=== PATIENT | female | born 2000 | race African-American/Black ===

== ENCOUNTER 2022-01-25 11:11 | Emergency (ER) | payer MEDICAID ==
[~2022-01-25] VITALS: Ht 162.6 cm; Wt 69.0 kg
[2022-01-25 11:12] VITALS: BP 142/86
[2022-01-25] MEDS ORDERED: NITROGLYCERIN 0.4MG TABLET SL SL PRN (12:15)
[2022-01-25] MEDS ORDERED: ASPIRIN 81MG TABLET PO ONE (12:15)
[2022-01-25 12:45] LABS: BASOPHILS % 0.5 % (0.0-2.0); EOSINOPHILS % 0.8 % (0.0-5.0); HEMATOCRIT. 42.1 % (36.0-48.0); HEMOGLOBIN. 13.8 g/dL (12.0-16.0); LYMPHOCYTES % 26.8 % (20.0-50.0); MEAN CORPUSCULAR HEMOGLOBIN 29.9 pg (28.0-32.0); MEAN CORPUSCULAR VOLUME 91.3 fL (81.0-99.0); MEAN PLATELET VOLUME 8.2 fl (7.4-10.4); MONOCYTES % 11.3 % (2.0-8.0); NEUTROPHILS % 60.6 % (40.0-76.0); PLATELET 295 x1000/uL (130-400); RED BLOOD CELL COUNT 4.62 mill/uL (4.2-5.4)
[2022-01-25 12:53] LABS: CHLORIDE 107 mEq/L (98-107)
[2022-01-25 13:07] LABS: HCG SCREEN NEGATIVE
== END 2022-01-25 17:00 | disposition home or self-care (01) ==
LOC: ER 16:56
DX: R07.89 Other chest pain (principal); F12.10 Cannabis abuse, uncomplicated; Z86.39 Personal history of other endocrine, nutritional and metabolic disease
CPT/HCPCS: 36415; 71045; 80053; 83880; 84484; 84703; 85025; 85379; 93005; 99285

== ENCOUNTER 2025-04-27 15:30 | Emergency (ER) | payer MEDICAID ==
[~2025-04-27] VITALS: Ht 162.6 cm; Wt 72.5 kg
[2025-04-27 15:33] VITALS: O2SAT 97
[2025-04-27 16:24] LABS: BASOPHILS % 0.3 % (0.0-2.0); EOSINOPHILS % 1.2 % (0.0-5.0); HEMATOCRIT. 44.7 % (36.0-48.0); HEMOGLOBIN. 14.8 g/dL (12.0-16.0); LYMPHOCYTES % 22.6 % (20.0-50.0); MEAN PLATELET VOLUME 8.0 fl (7.4-10.4); MONOCYTES % 7.8 % (2.0-8.0); NEUTROPHILS % 68.1 % (40.0-76.0); PLATELET 420 x1000/uL (130-400); RED BLOOD CELL COUNT 5.04 mill/uL (4.2-5.4); RED CELL DISTRIBUTION WIDTH 14.5 % (11.6-14.6)
[2025-04-27 16:31] LABS: CREATININE 0.9 mg/dL (0.6-1.0)
[2025-04-27 16:32] LABS: UREA NITROGEN BLOOD 6 mg/dL (9-23)
[2025-04-27] MEDS: ONDANSETRON HCL 4MG/2ML INJ IM ONE (17:00)
[2025-04-27] MEDS ORDERED: ONDANSETRON 4MG ODT PO ONE (17:00)
[2025-04-27 17:34] LABS: ASPARTATE AMINOTRANSFERASE 31 IU/L (<34)
[2025-04-27 17:35] LABS: BILIRUBIN DIRECT 0.3 mg/dL (<=3.0); BILIRUBIN TOTAL 0.7 mg/dL (0.1-1.0); PROTEIN TOTAL 7.7 g/dL (6.0-8.3)
[2025-04-27 18:00] LABS: CLARITY URINE CLEAR (CLEAR); COLOR URINE DARK YELLOW (YELLOW); GLUCOSE URINE NEGATIVE (NEGATIVE); KETONES URINE TRACE (NEGATIVE); LEUKOCYTE ESTERASE URINE NEGATIVE (NEGATIVE); NITRITE URINE NEGATIVE (NEGATIVE); OCCULT BLOOD URINE NEGATIVE (NEGATIVE); PH URINE 6.0 (4.5-8.0); PROTEIN URINE 2+ (NEGATIVE); SPECIFIC GRAVITY URINE 1.028 (1.005-1.030); UROBILINOGEN URINE 1.0 E.U./dL (0.2-1.0)
[2025-04-27 18:20] LABS: BACTERIA URINE 1+; MUCUS URINE 1+ /lpf (< = 2+); RBC URINE 0-2 /hpf (0-2); SQUAMOUS EPITHELIAL CELL URINE 2+ /lpf (RARE/1+)
[2025-04-27 19:15] VITALS: BP 135/92; PULSE 88; RESP 16; TEMP 36.7; O2SAT 97
== END 2025-04-27 19:16 | disposition home or self-care (01) ==
LOC: ER 15:30
DX: F10.129 Alcohol abuse with intoxication, unspecified (principal); R11.2 Nausea with vomiting, unspecified; R10.13 Epigastric pain; F12.90 Cannabis use, unspecified, uncomplicated; Y90.9 Presence of alcohol in blood, level not specified
CPT/HCPCS: 99283; 80076; 80048; 81003; 81025; 83690; 85025; 36415; 96372; J2405